=== PATIENT | male | born 1965 | race African-American/Black ===

== ENCOUNTER 2018-10-31 05:40 | Outpatient (CLI) | payer OTHER ==
[~2018-10-31] VITALS: Ht 160 cm; Wt 93.0 kg
[2018-10-31] MEDS ORDERED: INSU100I32 SQ (13:29)
[2018-10-31] MEDS ORDERED: SITA100T12 PO (13:29)
[2018-10-31] MEDS ORDERED: LISI1TAB6 PO (13:29)
[2018-10-31] MEDS ORDERED: ERGO2000 PO (13:29)
[2018-10-31] MEDS ORDERED: ATOR40TA70 PO (13:29)
[2018-10-31] MEDS ORDERED: INSU100I11 SQ (13:47)
== END 2018-10-31 13:43 | disposition home or self-care (01) ==
LOC: EDSEX → PREOP 05:40
PROVIDERS: ATTEND Specialist
DX: Z01.818 Encounter for other preprocedural examination (principal)

== ENCOUNTER 2018-11-02 08:48 | Day surgery (SDC) | payer OTHER ==
[~2018-11-02] VITALS: Ht 160 cm; Wt 93.0 kg
[~2018-11-02 08:48] MED LIST: ATOR40TA70 PO; ERGO2000 PO; INSU100I11 SQ; INSU100I32 SQ; LISI1TAB6 PO; SITA100T12 PO
[2018-11-02 08:55] VITALS: BP 117/85
[2018-11-02] MEDS ORDERED: TIMOLOL MALEATE 0.5% 5 ML (TIMOPTIC) BTL OU PRN (09:00)
[2018-11-02] MEDS ORDERED: POVIDONE (BETADINE) OPHTH SOLN 5% 30 ML OP ONE (09:00)
[2018-11-02] MEDS ORDERED: MOXIFLOXACIN OPHTH SOLN 5 MG/ML 0.3 ML SYRINGE OP ONE (09:00)
[2018-11-02] MEDS ORDERED: LIDOCAINE PF 1% 2 ML AMP IR PRN (09:00)
[2018-11-02] MEDS: TETRACAINE 0.5% OPHTH SOLN 4 ML BTL (SINGLE DOSE ONLY) OU PRN ×4 (09:10→09:28)
[2018-11-02] MEDS: CYCLOPENTOLATE 1% (CYCLOGYL) 2 ML DROPS OP SCH ×3 (09:17→09:28)
[2018-11-02] MEDS: PHENYLEPHRINE 10% OPHTH (NEO-SYN) 5 ML BTL OU SCH ×3 (09:18→09:28)
[2018-11-02] MEDS ORDERED: MIDAZOLAM 2 MG/2 ML (VERSED) VIAL ONE (09:46)
--- NOTE | 2018-11-02 09:49 | Ophthalmologist Pre-Op Note ---
Pre-Operative Progress Note H&P Reviewed The H&P was reviewed, patient examined and no changes noted. Date H&P Reviewed: Nov 02, 2018 Time H&P Reviewed: 09:48 Pre-Op Dx Cataract, Right Eye BRIANNA DONOVAN MD Nov 02, 2018 09:49
--- NOTE | 2018-11-02 10:11 | Ophthalmology Operative Report ---
Cataract removal/placement IOL PREOPERATIVE DIAGNOSIS: Cataract Right Eye POSTOPERATIVE DIAGNOSIS: Cataract Right Eye PROCEDURE: Cataract removal and placement of posterior chamber implant, right eye SURGEON: Rk Donovan ANESTHESIA: Topical with sedation COMPLICATIONS: None ESTIMATED BLOOD LOSS: Minimal DESCRIPTION OF PROCEDURE: After proper informed consent was obtained, the patient, a 53 male, was taken to the Operating Room and the right eye was anesthetized with tetracaine. The right eye was then prepped and draped in the usual manner. A wire lid speculum was placed. A paracentesis was made at the left hand position. Preservative free lidocaine was injected into the anterior chamber followed by viscoelastic. A clear corneal incision was made in the temporal position. A capsulorrhexis was preformed and the central nuclear and cortical material were removed. The posterior capsule was polished and Cory 18.5 AU00T0 IOL was placed into the capsular bag. The residual viscoelastic was aspirated and balanced saline solution was injected into the anterior chamber. Moxifloxacin was injected into the anterior chamber. The wound was checked and found to be water tight. The patient tolerated the procedure well without complications. RK DONOVAN MD Nov 02, 2018 10:11
[2018-11-02 10:21] VITALS: BP 132/75
[2018-11-02] MEDS ORDERED: acetaZOLAMIDE ER 500 MG CAP (DIAMOX SEQUELS) PO ONE (10:30)
--- NOTE | 2018-11-02 10:44 | Anesthesia-General Post-Op ---
MAC Patient Condition Mental Status/LOC: Same as Preop Cardiovascular: Satisfactory Nausea/Vomiting: Absent Respiratory: Satisfactory Pain: Controlled Complications: Absent Post Op Complications Complications None Follow Up Care/Instructions Patient Instructions None needed. Anesthesiology Discharge Order Discharge Order Patient is doing well, no complaints, stable vital signs, no apparent adverse anesthesia problems. No complications reported per nursing. STEPHANIE RIVERS CRNA Nov 02, 2018 10:44
== END 2018-11-02 10:21 | disposition home or self-care (01) ==
LOC: SDC 08:48 → EDSEX 08:48 → SDC 10:21
PROVIDERS: ATTEND Specialist
DX: E11.36 Type 2 diabetes mellitus with diabetic cataract (principal); I10 Essential (primary) hypertension; Z79.899 Other long term (current) drug therapy; Z83.3 Family history of diabetes mellitus; Z74.9 Problem related to care provider dependency, unspecified; Z83.511 Family history of glaucoma

== ENCOUNTER 2018-11-20 05:37 | Outpatient (CLI) | payer OTHER ==
[~2018-11-20] VITALS: Ht 160 cm; Wt 93.0 kg
== END 2018-11-21 13:05 | disposition home or self-care (01) ==
LOC: PREOP 05:37
PROVIDERS: ATTEND Specialist
DX: Z01.818 Encounter for other preprocedural examination (principal)

== ENCOUNTER 2018-11-23 08:36 | Day surgery (SDC) | payer OTHER ==
[~2018-11-23] VITALS: Ht 160 cm; Wt 93.0 kg
[2018-11-23 08:40] VITALS: BP 123/75
[2018-11-23] MEDS ORDERED: POVIDONE (BETADINE) OPHTH SOLN 5% 30 ML OP ONE (09:00)
[2018-11-23] MEDS ORDERED: LIDOCAINE PF 1% 2 ML AMP IR PRN (09:00)
[2018-11-23] MEDS ORDERED: TIMOLOL MALEATE 0.5% 5 ML (TIMOPTIC) BTL OU PRN (09:00)
[2018-11-23] MEDS ORDERED: MOXIFLOXACIN OPHTH SOLN 5 MG/ML 0.3 ML SYRINGE OP ONE (09:00)
[2018-11-23] MEDS: TETRACAINE 0.5% OPHTH SOLN 4 ML BTL (SINGLE DOSE ONLY) OU PRN ×4 (09:06→09:20)
[2018-11-23] MEDS: CYCLOPENTOLATE 1% (CYCLOGYL) 2 ML DROPS OP SCH ×3 (09:10→09:20)
[2018-11-23] MEDS: PHENYLEPHRINE 10% OPHTH (NEO-SYN) 5 ML BTL OU SCH ×3 (09:10→09:20)
[2018-11-23] MEDS ORDERED: MIDAZOLAM 2 MG/2 ML (VERSED) VIAL ONE (09:35)
--- NOTE | 2018-11-23 09:35 | Ophthalmologist Pre-Op Note ---
Pre-Operative Progress Note H&P Reviewed The H&P was reviewed, patient examined and no changes noted. Date H&P Reviewed: Nov 23, 2018 Time H&P Reviewed: 09:35 Pre-Op Dx Cataract, Left Eye BRIANNA DONOVAN MD Nov 23, 2018 09:35
--- NOTE | 2018-11-23 09:58 | Ophthalmology Operative Report ---
Cataract removal/placement IOL PREOPERATIVE DIAGNOSIS: Cataract Left Eye POSTOPERATIVE DIAGNOSIS: Cataract Left Eye PROCEDURE: Cataract removal and placement of posterior chamber implant, left eye SURGEON: Rk Donovan ANESTHESIA: Topical with sedation COMPLICATIONS: None ESTIMATED BLOOD LOSS: Minimal DESCRIPTION OF PROCEDURE: After proper informed consent was obtained, the patient, a 53 female, was taken to the Operating Room and the left eye was anesthetized with tetracaine. The left eye was then prepped and draped in the usual manner. A wire lid speculum was placed. A paracentesis was made at the left hand position. Preservative free lidocaine was injected into the anterior chamber followed by viscoelastic. A clear corneal incision was made in the temporal position. A capsulorrhexis was preformed and the central nuclear and cortical material were removed. The posterior capsule was polished and an Cory 21.5 AU00T0 was placed into the capsular bag. The residual viscoelastic was aspirated and balanced saline solution was injected into the anterior chamber. Moxifloxacin was injected into the anterior chamber. The wound was checked and found to be water tight. The patient tolerated the procedure well without complications. RK DONOVAN MD Nov 23, 2018 09:58
[2018-11-23 10:05] VITALS: BP 144/84
[2018-11-23] MEDS ORDERED: acetaZOLAMIDE ER 500 MG CAP (DIAMOX SEQUELS) PO ONE (10:30)
--- NOTE | 2018-11-23 10:58 | Anesthesia-General Post-Op ---
MAC Patient Condition Mental Status/LOC: Same as Preop Cardiovascular: Satisfactory Nausea/Vomiting: Absent Respiratory: Satisfactory Pain: Controlled Complications: Absent Post Op Complications Complications None Follow Up Care/Instructions Patient Instructions None needed. Anesthesiology Discharge Order Discharge Order Patient is doing well, no complaints, stable vital signs, no apparent adverse anesthesia problems. No complications reported per nursing. ROSE PAREDES CRNA Nov 23, 2018 10:58
== END 2018-11-23 10:05 | disposition home or self-care (01) ==
LOC: SDC 08:36
PROVIDERS: ATTEND Specialist
DX: H25.12 Age-related nuclear cataract, left eye (principal); E11.9 Type 2 diabetes mellitus without complications; I10 Essential (primary) hypertension; Z83.511 Family history of glaucoma; Z83.3 Family history of diabetes mellitus; Z79.4 Long term (current) use of insulin; Z79.899 Other long term (current) drug therapy
CPT/HCPCS: 82962

== ENCOUNTER → 2021-02-22 | Outpatient (CLI) | payer OTHER ==
[~2021-02-22] MED LIST changes: +LISI1TAB29 PO; -LISI1TAB6 PO
== END | disposition home or self-care (01) ==
LOC: PREOP 05:32
PROVIDERS: ATTEND Specialist
DX: Z01.818 Encounter for other preprocedural examination (principal)